=== PATIENT | male | born 1970 ===

== ENCOUNTER 2016-10-15 05:16 | Inpatient (IN) | payer OTHER ==
--- NOTE | 2016-10-15 06:31 | C.PDOC ---
History Of Present Illness 45 y/o male brought to ER by [facility] after being found in a building where he said he lived, however, patient is homeless. Patient presents to ER with medications from 2016. Patient's sister reports that he travels between [facility] [place] and [place] but does not have a place to stay. Denies suicidal ideation, homicidal ideation, or other medical complaints at this time. Time Seen by Provider: 10/15/16 06:28 Chief Complaint (Nursing): Psychiatric Evaluation History Per: Patient, Family, Other ([facility]) History/Exam Limitations: no limitations Current Symptoms Are (Timing): Still Present Suicide/Self Injury Attempted (Context): None Modifying Factor(s): None Pain Scale Rating Of: 0 Associated Symptoms: denies: Suicidal Thoughts, Suicidal Plan Recent travel outside of the [place]: No Past Medical History Reviewed: Historical Data, Nursing Documentation, Vital Signs Vital Signs: Last Vital Signs Temp 97.9 F 10/15/16 05:28 Pulse 103 H 10/15/16 05:28 Resp 20 10/15/16 05:28 BP 123/86 10/15/16 05:28 Pulse Ox 99 10/15/16 06:37 Family History: States: No Known Family Hx - Social History Hx Alcohol Use: No Hx Substance Use: No Review Of Systems Constitutional: Negative for: Fever, Chills Cardiovascular: Negative for: Chest Pain Respiratory: Negative for: Shortness of Breath Gastrointestinal: Negative for: Nausea, Vomiting Skin: Negative for: Rash Psych: Negative for: Suicidal ideation Physical Exam - Physical Exam Appears: Non-toxic, No Acute Distress, Other (flight of ideas, bizarre affect) Skin: Warm, Dry Chest: Symmetrical Cardiovascular: Rhythm Regular Respiratory: No Rales, No Rhonchi, No Wheezing Back: Normal Inspection Extremity: Normal ROM, Capillary Refill (< 2 sec. ) Neurological/Psych: Oriented x3 ED Course And Treatment O2 Sat by Pulse Oximetry: 99 (RA) Pulse Ox Interpretation: Normal Progress Note: Labs, crisis eval, observe in ER. ED OBSERVATION Date of observation admission: 10/15/16 Disposition Counseled Patient/Family Regarding: Studies Performed, Diagnosis - Disposition Disposition Time: 06:28 Condition: UNKNOWN - Clinical Impression Clinical Impression: Schizophrenia - Scribe Statement The provider has reviewed the documentation as recorded by the Shakira Garcia Provider Attestation: Provider Scribe Attestation: All medical record entries made by the Scribe were at my direction and personally dictated by me. I have reviewed the chart and agree that the record accurately reflects my personal performance of the history, physical exam, medical decision making, and the department course for this patient. I have also personally directed, reviewed, and agree with the discharge instructions and disposition. Physician Patient Turnover Patient Signed Over To: Yvonne Botello Handoff Comments: pending labs and crisis evaluation
[2016-10-15 06:40] LABS: BASO % 0.3 % (0.0-2.0); HEMATOCRIT 40.1 % (35.0-51.0); LYMPH # 1.9 K/uL (1.0-4.3); LYMPH % 17.3 % (20.0-40.0); MEAN CELL VOLUME 84.1 fL (80.0-94.0); MEAN CORPUSCULAR HEMOGLOBIN 27.6 pg (27.0-31.0); MEAN CORPUSCULAR HGB CONC 32.9 g/dL (33.0-37.0); MEAN PLATELET VOLUME 9.1 fL (7.2-11.7); MONO # 1.2 K/uL (0.0-0.8); MONO % 11.3 % (0.0-10.0); WHITE BLOOD COUNT 10.9 K/uL (4.8-10.8)
[2016-10-15 06:49] LABS: CHLORIDE 97 mmol/L (98-107); POTASSIUM 3.9 mmol/L (3.6-5.2); SODIUM 140 mmol/L (132-148)
[2016-10-15 06:51] LABS: ALB/GLOB RATIO 1.3 (1.0-2.1); AST/SGOT 30 U/L (17-59); BILIRUBIN,TOTAL 0.8 mg/dL (0.2-1.3); CARBON DIOXIDE 16 mmol/L (22-30); GFR AFRICAN-AMERICAN > 60
[2016-10-15 06:52] LABS: ALCOHOL SERUM < 10 mg/dl (0-10); ALKALINE PHOSPHATASE 59 U/L (38-126); ALT/SGPT 32 U/L (21-72); BLOOD UREA NITROGEN 19 mg/dL (9-20); CALCIUM 8.8 mg/dl (8.6-10.4); GLUCOSE,RANDOM 109 mg/dL (75-110)
[2016-10-15] MEDS ORDERED: DiphenhydrAMINE 50 mg/ml Inj IM STA (10:14)
[2016-10-15] MEDS ORDERED: DiphenhydrAMINE 50 mg/ml Inj ONE (10:26)
[2016-10-15 11:22] LABS: URINE BILIRUBIN NEGATIVE (NEGATIVE); URINE BLOOD 2+ (NEGATIVE); URINE COLOR Yellow (YELLOW); URINE GLUCOSE (UA) NORMAL (Normal); URINE KETONE 2+ mg/dL (NEGATIVE); URINE LEUKOCYTE ESTERASE NEG Leu/uL (Negative); URINE PROTEIN 2+ mg/dL (NEGATIVE); URINE UROBILINOGEN NORMAL mg/dL (0.2-1.0)
[2016-10-15 11:36] LABS: RBC URINE 8 /hpf (0-3); URINE BACTERIA OCC (<OCC); URINE HYALINE CAST 0 - 2 /lpf (0-2); WBC URINE 2 /hpf (0-5)
--- NOTE | 2016-10-15 13:31 | RAD ---
PROCEDURE: CHEST RADIOGRAPH, 1 VIEW HISTORY: possible screening COMPARISON: None available. FINDINGS: LUNGS: Poor inspiration with low lung volumes, crowded bronchovascular markings and mild bibasilar atelectasis PLEURA: No pneumothorax or pleural fluid seen. CARDIOVASCULAR: Heart appears borderline/mildly enlarged. OSSEOUS STRUCTURES: No significant abnormalities. VISUALIZED UPPER ABDOMEN: Normal. OTHER FINDINGS: None. IMPRESSION: Poor inspiration with low lung volumes, crowded bronchovascular markings and mild bibasilar atelectasis
--- NOTE | 2016-10-16 13:21 | PCM.PSYCH ---
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 Consultation was requested for patient's psychiatric condition which was previously evaluated by [facility] and he is committed for admission. The patient is a poor historian and is thought disordered, therefore the history is limited. He says he is 45-year-old, single with 2 adult children, unemployed and he claims he came from [place] but later on he stated that he came from [place]. He also claims he has an apartment here but then again he changed his story and he said he stays with a friend in [place]. He reports he was diagnosed with bipolar disorder and PTSD and was taking Seroquel and Xanax in the past. He is off medications now. According to medical records and by staff who spoke to his family, the patient had been hospitalized numerous times and involved in multiple behavioral problems. He was brought in by the police to our ER too. He denies having suicidal thoughts or homicidal thoughts but he appears grandiose, labile and psychotic. He has almost no insight into his condition. He also denied drug and alcohol use but his urine is positive for opiates and cocaine. Past psych history: Previous psych admissions Family psych history: Denied Medical history: Pain in leg and obese Current Medications: Active Medications Generic Name Dose Route Start Last Admin Trade Name Freq PRN Reason Stop Dose Admin Haloperidol 5 mg 10/16/16 13:19 Haldol PO Q1H PRN agitation, max 4x/24h Quetiapine Fumarate 100 mg 10/16/16 22:00 Seroquel PO HS [facility] Past Psychiatric History - Past Psychiatric History Previous Treatment History: Inpatient Pertinent Medical Hx (Current Medical&Sleep Prob, Allergies): Allergies Allergy/AdvReac Type Severity Reaction Status Date / Time No Known Allergies Allergy Verified 10/15/16 05:27 No Known Home Med 10/15/16 Review of Systems - Psychiatric Psychiatric: Abnormal Sleep Pattern, Anxiety, Difficulty Concentrating. absent : Hallucinations, Homicidal Ideation, Suicidal Ideation Mental Status Examination - Personal Presentation Personal Presentation: Looks older than stated age - Affect Affect: Other (labile) - Motor Activity Motor Activity: Calm - Reliability in Providing Information Reliability in Providing Information: Poor, due to alteration in thoughts, Poor , due to altered mood - Speech Speech: Disorganized - Mood Mood: Euphoric, Other (labile) - Formal Thought Process Formal Thought Process: Loosening of associations, Circumstantial - Cognitive Functions Orientation: Person, Place, Situation, Time Sensorium: Alert Estimate of Intelligence: Average Judgement: Intact, as evidence by: Insight regarding need for hospitalization Memory: Recent intact, as evidence by: Ability to recall events of the day, Remote intact, as evidenced by: Abilit to recall sig. life events - Risk Risk: Diminished functioning - Strength & Assets Inventory Strength & Assets Inventory: Cooperative - Limitations Limitations: Living alone DSM 5 DX - DSM 5 DSM 5 Diagnosis: Bipolar d/o - manic, severe r/o opioid and cocaine use d/o - Recommended/Plan of Treatment Treatment Recommendations and Plan of Treatment: Seroquel 100 mg tid prn haldol and ativan Transfer to [facility] 1:1
--- NOTE | 2016-10-16 21:31 | CARD ---
APPROVED REPORT EKG Measurement Heart [id number] <Conclusion> Sinus tachycardia Otherwise normal ECG
[2016-10-17 10:03] VITALS: O2SAT 98
--- NOTE | 2016-10-17 10:24 | PCM.PYCHPN ---
Psychiatric Progress Note - Psychiatric Progress Note Patient seen today, length of contact: 18 min Patient Chief Complaint: "I was a whole person when I came here, now I am not - they lost my drivers license in the ambulance" Problems Identified/Issues Discussed: The pt is seen, chart reviewed and case discussed. He is seen in ER, where he finally accepted to sign in voluntarily and agreed with the rules and understood his rights. And also on the floor. He is still manicky and has poor insight. [facility] but he doesn't have a good plan re follow up. He claims his family makes up stories about him being "very sick" (??) Yet, he does not shy away from talking about irrational and nonsensical things he had done when he was manic. Support and psychoed given Medication Change: Yes (increase doses) Medical Record Reviewed: Yes Mental Status Examination - Cognitive Function Orientation: Person, Place, Situation, Time Memory: Impaired Attention: Poor Concentration: Poor Association: Loose Fund of Knowledge: WNL - Mood Mood: Euphoric, Other (labile) - Affect Affect: Other (labile) - Speech Speech: Pressured - Formal Thought Process Formal Thought Process: Loosening of associations, Circumstantial - Suicidal Ideation Suicidal Ideation: No - Homicidal Ideation Homicidal Ideation: No Goal/Treatment Plan - Goal/Treatment Plan Need for Continued Stay: Discharge may exacerbated symptoms, Severe functional impairment Progress Toward Problem(s) and Goals/Treatment Plan: Seroquel is now 400 mg (100 bid and 200 hs) Continue other meds Support and psychoed CBT Close observation After care planning Estimated Date of D/C: 10/22/16
--- NOTE | 2016-10-18 15:49 | PCM.PYCHPN ---
Psychiatric Progress Note - Psychiatric Progress Note Patient seen today, length of contact: 15 minutes Patient Chief Complaint: I'm fine can I be discharged from the hospital Problems Identified/Issues Discussed: Patient seen. Chart reviewed. Case discussed with the staff. Issues related to illness and treatment were discussed with the patient. 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 Patient also believes that one of the nurse working on the unit is his second cousin. Patient still has no insight into his illness. Reported with medication he slept very well. Asking for discharge today so that he can attend the concert tomorrow. Reported compliant with treatment with no adverse affects. At the time of evaluation, patient was awake alert oriented 3 , no auditory or visual hallucinations, no suicidal ideations or homicidal ideations. Medical Problems: None reported Diagnostic Results: Reviewed Medication Change: No Medical Record Reviewed: Yes Mental Status Examination - Cognitive Function Orientation: Person, Place, Situation, Time Memory: Intact, Impaired Attention: WNL Concentration: WNL Association: WNL Fund of Knowledge: WNL Decription of patient's judgement and insights: Poor - Mood Mood: Euphoric - Affect Affect: Other (Appropriate) - Speech Speech: Soft, Pressured - Formal Thought Process Formal Thought Process: Loosening of associations - Suicidal Ideation Suicidal Ideation: No - Homicidal Ideation Homicidal Ideation: No Goal/Treatment Plan - Goal/Treatment Plan Need for Continued Stay: Remain at risks for inpatient hospitalization, Discharge may exacerbated symptoms, Severe functional impairment Progress Toward Problem(s) and Goals/Treatment Plan: Patient education Supportive therapy Continue treatment as before When necessary medications for opiate withdrawal Estimated Date of D/C: 10/27/16 - Smoking Cessation Smoking Cessation Initiated: No
--- NOTE | 2016-10-19 13:25 | PCM.PYCHPN ---
Psychiatric Progress Note - Psychiatric Progress Note Patient seen today, length of contact: 15 minutes Patient Chief Complaint: I'm feeling better. Problems Identified/Issues Discussed: Patient seen. Chart reviewed. Case discussed with the staff. Issues related to illness and treatment were discussed with the patient. Patient still appeared grandiose. Patient still has no insight into his illness. Reported with medication he slept very well. Reported compliant with treatment with no adverse affects. At the time of evaluation, patient was awake alert oriented 3 , no auditory or visual hallucinations, no suicidal ideations or homicidal ideations. Medical Problems: None reported Diagnostic Results: Reviewed Medication Change: No Medical Record Reviewed: Yes Mental Status Examination - Cognitive Function Orientation: Person, Place, Situation, Time Memory: Intact Attention: WNL Concentration: WNL Association: WNL Fund of Knowledge: WN Decription of patient's judgement and insights: Poor - Mood Mood: Euphoric - Affect Affect: Other (Appropriate) - Speech Speech: Pressured - Formal Thought Process Formal Thought Process: Delusions (Grandiosity) - Suicidal Ideation Suicidal Ideation: No - Homicidal Ideation Homicidal Ideation: No Goal/Treatment Plan - Goal/Treatment Plan Need for Continued Stay: Remain at risks for inpatient hospitalization, Discharge may exacerbated symptoms, Severe functional impairment Progress Toward Problem(s) and Goals/Treatment Plan: Patient education Supportive therapy Continue treatment as before When necessary medications for opiate withdrawal Estimated Date of D/C: 10/27/16 - Smoking Cessation Smoking Cessation Initiated: No
--- NOTE | 2016-10-20 12:35 | PCM.PYCHPN ---
Psychiatric Progress Note - Psychiatric Progress Note Patient seen today, length of contact: 17 min Patient Chief Complaint: "I am unhappy" Problems Identified/Issues Discussed: The pt is seen, chart reviewed, case discussed with staff. Seen as a team, too. The pt is compliant with medications and reports no side-effects. Symptoms are improving but needs more time to stabilize. He is still thought disordered, circumstantial, pressured and has low insight into his condition. He goes to [employer] and talks about irrelevant things a lot. He gave consent to us to talk to his friend, "Lupe" After care discussed, support and psychoeducation given. He will stay in for a while before he can go to [place]. Medication Change: Yes (add depakote, increase seroquel to 500 mg/d) Medical Record Reviewed: Yes Mental Status Examination - Cognitive Function Orientation: Person, Place, Situation, Time Memory: Intact Attention: Poor Concentration: Poor Association: Loose Fund of Knowledge: WNL - Mood Mood: Euphoric, Other (irate at times) - Affect Affect: Other (Appropriate) - Speech Speech: Pressured - Formal Thought Process Formal Thought Process: Delusions (Grandiosity), Loosening of associations - Suicidal Ideation Suicidal Ideation: No - Homicidal Ideation Homicidal Ideation: No Goal/Treatment Plan - Goal/Treatment Plan Need for Continued Stay: Remain at risks for inpatient hospitalization, Discharge may exacerbated symptoms, Severe functional impairment Progress Toward Problem(s) and Goals/Treatment Plan: Seroquel is now 500 mg (100 bid and 300 hs) add depakote 500 mg bid Continue other meds Support and psychoed CBT Close observation After care planning: CRC Estimated Date of D/C: 10/24/16 If changed, why: slowly improving
[2016-10-20] MEDS: Divalproex 500 mg DR Tab PO SCH (17:47)
[2016-10-21] MEDS: Divalproex 500 mg DR Tab PO SCH ×2 (09:37→17:15)
--- NOTE | 2016-10-21 13:37 | PCM.PYCHPN ---
Psychiatric Progress Note - Psychiatric Progress Note Patient seen today, length of contact: 18 min Patient Chief Complaint: "My daughter wants to pick me up" Problems Identified/Issues Discussed: The pt is seen, chart reviewed, case discussed with staff. The pt is compliant with medications and reports no side-effects. Symptoms are improving but needs more time to stabilize. He is still thought disordered, circumstantial and delusional. 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 Coin Wrapping Machine Operator spoke to his 21 year old daughter over the phone with his permission. She reported that pt was just released from a"mental institution in [place]" and that he stops meds when he feels he is OK. She even asked if we could send him to [place] for detention admission. After care discussed, support and psychoeducation given. IN and CBT used briefly.He was using drugs, too. Medication Change: Yes (depakote added) Medical Record Reviewed: Yes Mental Status Examination - Cognitive Function Orientation: Person, Place, Situation, Time Memory: Intact Attention: Poor Concentration: Poor Association: Loose Fund of Knowledge: WNL - Mood Mood: Euphoric, Other (irate at times) - Affect Affect: Other (Appropriate) - Speech Speech: Pressured - Formal Thought Process Formal Thought Process: Delusions (Grandiosity), Loosening of associations - Suicidal Ideation Suicidal Ideation: No - Homicidal Ideation Homicidal Ideation: No Goal/Treatment Plan - Goal/Treatment Plan Need for Continued Stay: Remain at risks for inpatient hospitalization, Discharge may exacerbated symptoms, Severe functional impairment Progress Toward Problem(s) and Goals/Treatment Plan: Seroquel is now 500 mg (100 bid and 300 hs) added depakote 500 mg bid Consider depot meds Continue other meds Support and psychoed CBT Close observation After care planning: CRC or [facility] Get insurance as he will need it a lot for after care Estimated Date of D/C: 10/24/16
[2016-10-22] MEDS: Divalproex 500 mg DR Tab PO SCH ×2 (10:50→17:08)
--- NOTE | 2016-10-22 16:38 | PCM.PYCHPN ---
Psychiatric Progress Note - Psychiatric Progress Note Patient seen today, length of contact: 16 min Patient Chief Complaint: Pt seen for follow up Problems Identified/Issues Discussed: Pt was seen, chart reviewed, and case discussed with staff. Reported compliant with the treatment, no adverse effects. There is slight improvement of symptoms, however continued disordered,circumstantial and delusional thought process. Pt still without insight. Needs more time to stabilize. 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 Medication Change: No Medical Record Reviewed: Yes Mental Status Examination - Cognitive Function Orientation: Person, Place, Situation, Time Memory: Intact Attention: Poor Concentration: Poor Association: Loose Fund of Knowledge: WNL - Mood Mood: Euphoric, Other (irate at times) - Affect Affect: Other (Appropriate) - Speech Speech: Pressured - Formal Thought Process Formal Thought Process: Delusions (Grandiosity), Loosening of associations - Suicidal Ideation Suicidal Ideation: No - Homicidal Ideation Homicidal Ideation: No Goal/Treatment Plan - Goal/Treatment Plan Need for Continued Stay: Remain at risks for inpatient hospitalization, Discharge may exacerbated symptoms, Severe functional impairment Progress Toward Problem(s) and Goals/Treatment Plan: Seroquel is now 500 mg (100 bid and 300 hs) depakote 500 mg bid Consider depot meds Continue other meds Support and psychoed CBT Close observation After care planning: CRC or [facility] Get insurance as he will need it a lot for after care Estimated Date of D/C: 10/27/16 If changed, why: Still manic and psychotic
[2016-10-23] MEDS: Aluminum Hydroxide/Magnesium Hydroxide Susp (30 mL) PO PRN (00:15)
[2016-10-23] MEDS: Divalproex 500 mg DR Tab PO SCH ×2 (10:05→17:15)
--- NOTE | 2016-10-23 14:19 | PCM.PYCHPN ---
Psychiatric Progress Note - Psychiatric Progress Note Patient seen today, length of contact: 16 min Patient Chief Complaint: "I haven't slept, can I have Ambien?" Problems Identified/Issues Discussed: Pt seen, chart reviewed, and case discussed with staff. Pt compliant with treatment. Complains of poor sleep and requesting medication. Today, pt's symptoms are improved from yesterday, thought process improved however still tangential and delusional. Pt still without insight. Today, pt adamant about being discharged in time to attend [facility] [place] Thursday. Denies suicidal ideation, homicidal ideation. Still manic and psychotic but slowly improving. Aftercare discussed, psychoeducation and support given. Medication Change: Yes (Depakote, haldol) Medical Record Reviewed: Yes Mental Status Examination - Cognitive Function Orientation: Person, Place, Situation, Time Memory: Intact Attention: Poor Concentration: Poor Association: Loose Fund of Knowledge: WNL - Mood Mood: Anxious - Affect Affect: Other (Appropriate) - Speech Speech: Pressured - Formal Thought Process Formal Thought Process: Delusions (Grandiosity), Loosening of associations - Suicidal Ideation Suicidal Ideation: No - Homicidal Ideation Homicidal Ideation: No Goal/Treatment Plan - Goal/Treatment Plan Need for Continued Stay: Remain at risks for inpatient hospitalization, Discharge may exacerbated symptoms, Severe functional impairment Progress Toward Problem(s) and Goals/Treatment Plan: Seroquel 500 mg (100 bid and 300 hs) depakote 1000 mg bid Consider depot meds; ordered for the weekend Continue other meds Support and psychoed CBT Close observation After care planning: CRC or [facility] Get insurance as he will need it a lot for after care Estimated Date of D/C: 10/29/16
[2016-10-24] MEDS: Divalproex 500 mg DR Tab PO SCH ×2 (09:27→18:39)
--- NOTE | 2016-10-24 16:38 | PCM.PYCHPN ---
Psychiatric Progress Note - Psychiatric Progress Note Patient seen today, length of contact: 16 min Patient Chief Complaint: "I only slept 3 hours" Problems Identified/Issues Discussed: Pt was seen, chart reviewed, and case discussed with staff Pt is compliant with medication. Complains of persistent poor sleep. Denies suicidal ideation, homicidal ideation, and hallucinations. Today, pt's symptoms are much improved. Pt is less psychotic, less manic, and more cooperative. Aftercare discussed, psychoeducation and support given. Medication Change: No Medical Record Reviewed: Yes Mental Status Examination - Cognitive Function Orientation: Person, Place, Situation, Time Memory: Intact Attention: Poor Concentration: Poor Association: Loose Fund of Knowledge: WNL - Mood Mood: Anxious - Affect Affect: Other (Appropriate) - Speech Speech: Appropriate - Formal Thought Process Formal Thought Process: Delusions (Grandiosity), Loosening of associations - Suicidal Ideation Suicidal Ideation: No - Homicidal Ideation Homicidal Ideation: No Goal/Treatment Plan - Goal/Treatment Plan Need for Continued Stay: Remain at risks for inpatient hospitalization, Discharge may exacerbated symptoms, Severe functional impairment Progress Toward Problem(s) and Goals/Treatment Plan: Seroquel 500 mg (100 bid and 300 hs) depakote 1000 mg bid Consider depot meds; ordered for the weekend Continue other meds Support and psychoed CBT Close observation After care planning: CRC or [facility] Get insurance as he will need it a lot for after care Estimated Date of D/C: 10/29/16
[2016-10-25] MEDS: Divalproex 500 mg DR Tab PO SCH ×2 (09:46→17:33)
--- NOTE | 2016-10-25 11:28 | PCM.PYCHPN ---
Psychiatric Progress Note - Psychiatric Progress Note Patient seen today, length of contact: 16 min Patient Chief Complaint: I'm doing fine Problems Identified/Issues Discussed: Patient seen and evaluated, chart reviewed and discussed with the nurse. Patient appeared more disorganized and less internally preoccupied than before. however he still unkempt, malodorous and not taking care of his hygiene. he appears less irritable and less agitation. he states that he is doing much better than before. he is taking his medication and denied any side effects. Supportive therapy and psychoeducation were given. Medication Change: No Medical Record Reviewed: Yes Mental Status Examination - Cognitive Function Orientation: Person, Place, Situation, Time Memory: Intact Attention: Poor Concentration: Poor Association: Loose Fund of Knowledge: WNL - Mood Mood: Anxious - Affect Affect: Other (Appropriate) - Speech Speech: Appropriate - Formal Thought Process Formal Thought Process: Delusions (Grandiosity), Paranoia, Loosening of associations - Suicidal Ideation Suicidal Ideation: No - Homicidal Ideation Homicidal Ideation: No Goal/Treatment Plan - Goal/Treatment Plan Need for Continued Stay: Remain at risks for inpatient hospitalization, Discharge may exacerbated symptoms, Severe functional impairment Progress Toward Problem(s) and Goals/Treatment Plan: Bipolar d/o - manic, severe r/o opioid and cocaine use d/o Seroquel 500 mg (100 bid and 300 hs) depakote 1000 mg bid Consider depot meds; ordered for the weekend Continue other meds Support and psychoed CBT Close observation After care planning: CRC or [facility] Get insurance as he will need it a lot for after care Estimated Date of D/C: 10/29/16 - Smoking Cessation Smoking Cessation Initiated: No
[2016-10-25] MEDS: Benzocaine/Menthol (Cepacol) Lozenge MT PRN (17:37)
[2016-10-26] MEDS: Benzocaine/Menthol (Cepacol) Lozenge MT PRN ×3 (03:30→13:56)
[2016-10-26] MEDS: Divalproex 500 mg DR Tab PO SCH ×2 (09:56→17:12)
--- NOTE | 2016-10-26 16:14 | PCM.PYCHPN ---
Psychiatric Progress Note - Psychiatric Progress Note Patient seen today, length of contact: 16 min Patient Chief Complaint: I'm feeling better. Problems Identified/Issues Discussed: Patient seen and evaluated, chart reviewed and discussed with the nurse. As per the nurse, patient remained calm and cooperative and as less anxious and less irritable. Patient is still unkempt and he is not taking care of his hygiene. However he appears more organized and less internally preoccupied than before. He denies any suicidal ideation or homicidal ideation. He is taking his medication and denied any side effects. Supportive therapy and psychoeducation were given. Medication Change: No Medical Record Reviewed: Yes Mental Status Examination - Cognitive Function Orientation: Person, Place, Situation, Time Memory: Intact Attention: Poor Concentration: Poor Association: Loose Fund of Knowledge: WNL - Mood Mood: Anxious - Affect Affect: Other (Appropriate) - Speech Speech: Appropriate - Formal Thought Process Formal Thought Process: Delusions (Grandiosity), Paranoia, Loosening of associations - Suicidal Ideation Suicidal Ideation: No - Homicidal Ideation Homicidal Ideation: No Goal/Treatment Plan - Goal/Treatment Plan Need for Continued Stay: Remain at risks for inpatient hospitalization, Discharge may exacerbated symptoms, Severe functional impairment Progress Toward Problem(s) and Goals/Treatment Plan: Bipolar d/o - manic, severe r/o opioid and cocaine use d/o Seroquel 500 mg (100 bid and 300 hs) Depakote 1000 mg bid Haldol 50 mg IM shot Klonopin 1 mg by mouth twice a day trazodone 50 mg by mouth daily at bedtime Gabapentin 300 mg by mouth daily Consider depot meds; ordered for the weekend Continue other meds Support and psychoed CBT Close observation After care planning: [facility] or [facility] [place] Get insurance as he will need it a lot for after care Estimated Date of D/C: 10/29/16 - Smoking Cessation Smoking Cessation Initiated: No
[2016-10-27] MEDS: Benzocaine/Menthol (Cepacol) Lozenge MT PRN ×2 (09:53→22:14)
[2016-10-27] MEDS: Divalproex 500 mg DR Tab PO SCH ×2 (09:53→18:22)
[2016-10-27 15:52] VITALS: PULSE 96
--- NOTE | 2016-10-28 00:53 | PCM.PYCHPN ---
Psychiatric Progress Note - Psychiatric Progress Note Patient seen today, length of contact: 17 min Patient Chief Complaint: "I am too tired with meds" Problems Identified/Issues Discussed: Pt was seen, chart reviewed, and case discussed with staff Pt is compliant with medications. c/o oversedation - doses adjusted Denies suicidal ideation, homicidal ideation, and hallucinations. CBt used Aftercare discussed, psychoeducation and support given. Medication Change: No Medical Record Reviewed: Yes Mental Status Examination - Cognitive Function Orientation: Person, Place, Situation, Time Memory: Intact Attention: Poor Concentration: Poor Association: Loose Fund of Knowledge: WNL - Mood Mood: Anxious - Affect Affect: Other (Appropriate) - Speech Speech: Appropriate - Formal Thought Process Formal Thought Process: Delusions (Grandiosity), Paranoia, Loosening of associations - Suicidal Ideation Suicidal Ideation: No - Homicidal Ideation Homicidal Ideation: No Goal/Treatment Plan - Goal/Treatment Plan Need for Continued Stay: Remain at risks for inpatient hospitalization, Discharge may exacerbated symptoms, Severe functional impairment Progress Toward Problem(s) and Goals/Treatment Plan: Seroquel 500 mg (100 bid and 300 hs) depakote 1000 mg bid Consider depot meds; ordered for the weekend Continue other meds Support and psychoed CBT Close observation After care planning: [facility] or [facility] Get insurance as he will need it a lot for after care Estimated Date of D/C: 10/29/16
[2016-10-28] MEDS: Benzocaine/Menthol (Cepacol) Lozenge MT PRN ×2 (05:59→11:07)
--- NOTE | 2016-10-28 09:52 | PCM.PYCHDC ---
Mental Status Examination - Mental Status Examination Orientation: Person, Place, Situation, Time Memory: Intact Mood: Anxious Affect: Constricted Speech: Appropriate Attention: WNL Concentration: WNL Association: WNL Fund of Knowledge: WNL Formal Thought Process: No Impairment Suicidal Ideation: No Current Homicidal Ideation?: No Discharge Summary - Discharge Note Reason for Hospitalization: Agitation, tommy Psychiatric History (includes Medical, Family, Personal Hx): Numerous admissions in [place] and [place], bipolar d/o Laboratory Data: Abnormal Lab Results 10/27/16 10:15 Valproic Acid 58.9 Consultations:: List each consultation separately and include: 1. Reason for request. 2. Findings. 3. Follow-up Summary of Hospital Course include:: 1. Description of specific treatment plan utilized for patients during their course of treatmen. 2. Summarize the time- course for resolution of acute symptoms and/or regressed behaviors. 3. Describe issues identified and worked on during hospitalization. 4. Describe medication utilized. 5. Describe medical problems identified and treated. 6. Reassessment of suicide risk Summary of Hospital Course: The patient is seen, chart reviewed and case discussed. On admission: The patient is a poor historian and is thought disordered, therefore the history is limited. He says he is 45-year-old, single with 2 adult children, unemployed and he claims he came from [place] but later on he stated that he came from [place]. He also claims he has an apartment here but then again he changed his story and he said he stays with a friend in [place]. He reports he was diagnosed with bipolar disorder and PTSD and was taking Seroquel and Xanax in the past. He is off medications now. According to medical records and by staff who spoke to his family, the patient had been hospitalized numerous times and involved in multiple behavioral problems. He was brought in by the police to our ER too. He denies having suicidal thoughts or homicidal thoughts but he appears grandiose, labile and psychotic. He has almost no insight into his condition. He also denied drug and alcohol use but his urine is positive for opiates and cocaine. Past psych history: Previous psych admissions Family psych history: Denied Medical history: Pain in leg and obese Hospital course: The pt was admitted and started on treatment with psychotherapy, support, psychoeducation and medications, incl. depakote and haldol decanoate. [place] and CBT used for substance use (which he minimizes) and bipolar d/o, respectively. The pt attended groups and activities, as well as milieu therapy. [employer] Compliance Officer got collateral from his daughter who confirmed his chronic mental illness and need for long stay and tx. However, the pt was not interested in longer care and his insight improved slowly He was grandiose and delusional, but not as agitated as his first day in ED All the risks and benefits of medications are discussed and the patient understood and agreed. After care discussed with the patient. He wanted to stay in [place] until he is feeling better and then move to [place] again He will go to [facility] - Final Diagnosis (DSM 5) Condition upon Discharge: STABLE DSM 5: Bipolar 1 d/o - manic Cocaine use d/o - severe Disposition: HOME/ ROUTINE Follow-up Treatment Plan: Continue below medications after discharge. Depakote is also rx'ed but [facility] did not show Follow after care plan as discussed. [facility] Use relapse prevention skills Return to ER or call 911 if suicidal, homicidal or symptoms relapse. Stay away from stress, alcohol and drugs. Prescriptions/Medication Reconciliation: hydrOXYzine HCl [Atarax] 50 mg PO BID #60 tab Gabapentin [Neurontin] 300 mg PO TID #90 cap QUEtiapine [Seroquel] 300 mg PO HS #30 tab - Smoking Cessation Smoking Cessation Medication prescribed: No - Antipsychotic Medications Pt discharged on 2 or more routine antipsychotic medications: No
[2016-10-28 10:28] VITALS: BP 117/77; RESP 20; TEMP 97.5
[2016-10-28] MEDS: Aluminum Hydroxide/Magnesium Hydroxide Susp (30 mL) PO PRN (11:02)
[2016-10-28] MEDS: Divalproex 500 mg DR Tab PO SCH (11:06)
== END 2016-10-28 11:43 | disposition home or self-care (01) | DRG 430 ==
LOC: C.ER 05:16 → C.9OBSV 06:29 → OBSVTOIN 10-17 10:24 → C.9E 10-17 10:24 → C.5E 10-17 10:45
PROVIDERS: ADMIT Psychiatry & Neurology Psychiatry; ATTEND Psychiatry & Neurology Psychiatry
PROC: GZ3ZZZZ Medication Management (ICD-10-PCS; principal; 2016-10-17)
PROC: GZHZZZZ Group Psychotherapy (ICD-10-PCS; 2016-10-17)
PROC: GZ56ZZZ Individual Psychotherapy, Supportive (ICD-10-PCS; 2016-10-17)
DX: F31.13 Bipolar disorder, current episode manic without psychotic features, severe (principal); F11.10 Opioid abuse, uncomplicated; F14.10 Cocaine abuse, uncomplicated; F43.10 Post-traumatic stress disorder, unspecified; Z59.0 Homelessness

== ENCOUNTER 2016-11-04 08:29 | Inpatient (IN) | payer MEDICAID, OTHER ==
[2016-11-04 08:40] VITALS: BMI 38.7
--- NOTE | 2016-11-04 09:50 | C.PDOC ---
History Of Present Illness 45 y/o male hx of anxiety, bipolar disorder, presents to the ED with complains of anxiety x1 week and inability to sleep. Pt was recently discharged from hospital and states he did not get prescription for sleeping medications; he used to take trazadone. Pt denies SI, HI, or any other complaints. Time Seen by Provider: 11/04/16 08:48 Chief Complaint (Nursing): Anxiety History Per: Patient History/Exam Limitations: no limitations Onset/Duration Of Symptoms: Days Current Symptoms Are (Timing): Still Present Suicide/Self Injury Attempted (Context): None Modifying Factor(s): None Severity: Mild Associated Symptoms: Anxiety. denies: Suicidal Thoughts Involuntary Hold By: None Recent travel outside of the [place]: No Past Medical History Reviewed: Historical Data, Nursing Documentation, Vital Signs Vital Signs: Last Vital Signs Temp 98.4 F 11/04/16 12:23 Pulse 74 11/04/16 12:23 Resp 18 11/04/16 12:23 BP 109/71 11/04/16 12:23 Pulse Ox 98 11/04/16 12:23 - Medical History PMH: Bipolar Disorder, Post Traumatic Stress Disorder Denies: HIV (Unknown) Comment Only: Diabetes (Unknown), Hepatitis (Unknown), HTN (Unknown), Seizures (Unknown), Sexually Transmitted Disease (Unknown) Surgical History: Appendectomy - [facility] Procedures GROUP PSYCHOTHERAPY (10/17/16) INDIVIDUAL PSYCHOTHERAPY, SUPPORTIVE (10/17/16) MEDICATION MANAGEMENT (10/17/16) Family History: States: Unknown Family Hx - Social History Hx Alcohol Use: No Hx Substance Use: No (pt denies) - Immunization History Hx Tetanus Toxoid Vaccination: Yes Hx Influenza Vaccination: No Hx Pneumococcal Vaccination: Yes Review Of Systems Except As Marked, All Systems Reviewed And Found Negative. Constitutional: Negative for: Fever Psych: Positive for: Anxiety. Negative for: Suicidal ideation Physical Exam - Physical Exam Appears: Non-toxic, No Acute Distress Skin: Warm, Dry, No Rash Head: Atraumatic, Normacephalic Eye(s): bilateral: Normal Inspection, EOMI Neck: Normal ROM Cardiovascular: Rhythm Regular Respiratory: Normal Breath Sounds, No Rales, No Rhonchi, No Wheezing Extremity: Bilateral: Atraumatic Neurological/Psych: Oriented x3, Normal Speech, Other (anxious, bizarre affect) ED Course And Treatment - Laboratory Results Result Diagrams: 11/04/16 10:38 11/04/16 10:38 Lab Interpretation: No Acute Changes O2 Sat by Pulse Oximetry: 97 (on room air) Pulse Ox Interpretation: Normal Medical Decision Making Medical Decision Making: Pt was admitted on 10/15 for bipolar disorder, discharged 10/28. Plan: * CRISIS evaluation Reevaluation: electrical line worker evaluates patient at bedside and recommends labs for clearance. Labs ordered and reviewed. In my clinical judgment patient is medically cleared and stable for psychiatric admission. Patient to be admitted under DR Flores service for bipolar disorder Disposition Counseled Patient/Family Regarding: Need For Followup, Rx Given - Disposition Disposition: HOSPITALIZED Disposition Time: 12:03 Condition: FAIR - POA Present On Arrival: None - Clinical Impression Clinical Impression: Bipolar disorder - PA / SPOOL WINDER / Resident Statement MD/DO has reviewed & agrees with the documentation as recorded. - Scribe Statement The provider has reviewed the documentation as recorded by the Nathanaelibannie Bales All medical record entries made by the Scribe were at my direction and personally dictated by me. I have reviewed the chart and agree that the record accurately reflects my personal performance of the history, physical exam, medical decision making, and the department course for this patient. I have also personally directed, reviewed, and agree with the discharge instructions and disposition. Decision To Admit - Pt Status Changed To: Hospital Disposition Of: Inpatient - Admit Certification Admit to Inpatient:: After my assessment, the patient will require hospitalization for at least two midnights. This is because of the severity of symptoms shown, intensity of services needed, and/or the medical risk in this patient being treated as an outpatient. - InPatient: Physician Admission Certification: I certify that this patient requires 2 or more midnights of care for the following reason:: Patient for [facility] admission for bipolar disorder, see chart - . Bed Request Type: Psychiatry Admitting Physician: Kecia Flores Patient Diagnosis: Bipolar disorder
[2016-11-04 10:43] LABS: BASO % 0.5 % (0.0-2.0); EOS # 0.1 K/uL (0.0-0.7); EOS % 1.1 % (0.0-4.0); HEMATOCRIT 34.3 % (35.0-51.0); LYMPH # 1.9 K/uL (1.0-4.3); LYMPH % 26.4 % (20.0-40.0); MEAN CELL VOLUME 84.1 fL (80.0-94.0); MEAN CORPUSCULAR HEMOGLOBIN 27.6 pg (27.0-31.0); MEAN CORPUSCULAR HGB CONC 32.8 g/dL (33.0-37.0); MEAN PLATELET VOLUME 7.6 fL (7.2-11.7); MONO # 0.6 K/uL (0.0-0.8); MONO % 8.7 % (0.0-10.0); NRBC % 0.1 % (0.0-2.0); RED CELL DISTRIBUTION WIDTH 15.1 % (11.5-14.5); WHITE BLOOD COUNT 7.3 K/uL (4.8-10.8)
[2016-11-04 10:55] LABS: CHLORIDE 103 mmol/L (98-107)
[2016-11-04 10:56] LABS: POTASSIUM 3.8 mmol/L (3.6-5.2); SODIUM 137 mmol/L (132-148)
[2016-11-04 10:58] LABS: BILIRUBIN,TOTAL 0.2 mg/dL (0.2-1.3); CARBON DIOXIDE 25 mmol/L (22-30); GFR AFRICAN-AMERICAN > 60
[2016-11-04 10:59] LABS: ALB/GLOB RATIO 1.2 (1.0-2.1); ALCOHOL SERUM < 10 mg/dl (0-10); ALKALINE PHOSPHATASE 59 U/L (38-126); ALT/SGPT 43 U/L (21-72); AST/SGOT 29 U/L (17-59); BLOOD UREA NITROGEN 8 mg/dL (9-20); CALCIUM 8.2 mg/dl (8.6-10.4); GLUCOSE,RANDOM 132 mg/dL (75-110); TOTAL PROTEIN 6.5 g/dL (6.3-8.3)
[2016-11-04 11:01] LABS: RBC URINE 11 /hpf (0-3); URINE BACTERIA RARE (<OCC); URINE BILIRUBIN NEGATIVE (NEGATIVE); URINE BLOOD 1+ (NEGATIVE); URINE COLOR Yellow (YELLOW); URINE GLUCOSE (UA) NORMAL (Normal); URINE KETONE NEGATIVE (NEGATIVE); URINE LEUKOCYTE ESTERASE NEG Leu/uL (Negative); URINE PROTEIN NEGATIVE (NEGATIVE); URINE UROBILINOGEN NORMAL mg/dL (0.2-1.0); WBC URINE 2 /hpf (0-5)
--- NOTE | 2016-11-04 13:15 | PCM.PSYCH ---
Initial Psychiatric Evaluation - Initial Psychiatric Evaluation Type of Admission: Voluntary Legal Status: Capacity Past Psychiatric History - Past Psychiatric History Pertinent Medical Hx (Current Medical&Sleep Prob, Allergies): Allergies Allergy/AdvReac Type Severity Reaction Status Date / Time No Known Allergies Allergy Verified 11/04/16 08:38 Gabapentin [Neurontin] 300 mg PO TID #90 cap 10/28/16 QUEtiapine [Seroquel] 100 mg PO DAILY #30 tab 10/28/16 QUEtiapine [Seroquel] 300 mg PO HS #30 tab 10/28/16 hydrOXYzine HCl [Atarax] 50 mg PO BID #60 tab 10/28/16
[2016-11-04 13:22] VITALS: O2SAT 97
--- NOTE | 2016-11-04 14:17 | PCM.PSYCH ---
Initial Psychiatric Evaluation - Initial Psychiatric Evaluation Type of Admission: Voluntary Legal Status: Capacity Chief Complaint (in patient's own words): Feeling very anxious History of Present Illness and Precipitating Events: Pt is a 46 year old, male, presenting to the ED for a crisis evaluation due to anxiety and loss of sleep. Pt states that he has been unable to sleep since his discharge from last week. Patient was just discharged from [facility] almost 10 days ago. He was admitted because of disorganized and internally preoccupied behavior. As per the patient, soon after discharge he stopped taking medications as he thought that he has already received the injection. As per the patient, he started having racing of thoughts and flight of ideas. Yesterday he started having hallucinations so came to the hospital to get help. Patient remained disorganized and internally preoccupied throughout the interview. He appeared delusional and paranoid. Patient reports of hearing voices auditory hallucinations and reports persecutory delusions that someone is following him. His urinary toxicology is positive for heroin, cocaine and marijuana and patient reports that he abused something in a alliance party but he doesnt remember. Past medical history Hypercholesterolemia Current Medications: Active Medications Generic Name Dose Route Start Last Admin Trade Name Freq PRN Reason Stop Dose Admin Diphenhydramine HCl 50 mg 11/04/16 13:19 Benadryl PO Q6 PRN Extra Pyramidal Symptoms Haloperidol 5 mg 11/04/16 13:19 Haldol PO Q8 PRN Moderate Agitation Haloperidol Lactate 5 mg 11/04/16 13:19 Haldol IM Q8 PRN Moderate Agitation Lorazepam 1 mg 11/04/16 13:19 Ativan PO Q6 PRN Anxiety Trazodone HCl 50 mg 11/04/16 22:00 Desyrel PO HS [facility] Past Psychiatric History - Past Psychiatric History Previous Treatment History: Inpatient Pertinent Medical Hx (Current Medical&Sleep Prob, Allergies): Allergies Allergy/AdvReac Type Severity Reaction Status Date / Time No Known Allergies Allergy Verified 11/04/16 08:38 Gabapentin [Neurontin] 300 mg PO TID #90 cap 10/28/16 QUEtiapine [Seroquel] 100 mg PO DAILY #30 tab 10/28/16 QUEtiapine [Seroquel] 300 mg PO HS #30 tab 10/28/16 hydrOXYzine HCl [Atarax] 50 mg PO BID #60 tab 10/28/16 Review of Systems - Review of Systems All systems: reviewed and no additional remarkable complaints except - Psychiatric Psychiatric: Anxiety, Auditory Hallucinations, Irritability, Mood Swings, Visual Hallucinations Mental Status Examination - Personal Presentation Personal Presentation: Looks older than stated age - Affect Affect: Broad - Motor Activity Motor Activity: Psychomotor Agitation - Reliability in Providing Information Reliability in Providing Information: Poor, due to alteration in thoughts, Poor , due to altered mood - Speech Speech: Disorganized - Mood Mood: Anxious - Formal Thought Process Formal Thought Process: Hallucinations, Delusions, Paranoia, Loosening of associations, Flight of ideas - Hallucinations/Delusions Hallucinations: Visual, Auditory Delusions: Persecution - Obsessions/Compulsions Obsessions: No Compulsions: No - Cognitive Functions Orientation: Person, Place, Situation, Time Sensorium: Alert Attention/Concentration: Attentive Abstract Thinking: Harper Estimate of Intelligence: Below average Judgement: Imparied, as evidence by: Poor judgement, Imparied, as evidence by: Lack of insight into illness - Risk Risk: Diminished functioning - Strength & Assets Inventory Strength & Assets Inventory: Cooperative - Limitations Limitations: Living alone DSM 5 DX - DSM 5 DSM 5 Diagnosis: Schizoaffective disorder bipolar type Opiate use disorder moderate Cocaine use disorder moderate Cannabis use disorder mild - Recommended/Plan of Treatment Treatment Recommendations and Plan of Treatment: Schizoaffective disorder bipolar type CBT Psychoeducation Supportive therapy, group therapy, individual therapy Depakote 500 mg by mouth twice a day Neurontin 300 mg by mouth 3 times a day Trazodone 50 mg by mouth daily at bedtime Seroquel 100 milligrams by mouth daily at bedtime Opiate use disorder moderate CBT Psychoeducation Supportive therapy, individual therapy Use [place] for abstinence Cocaine use disorder moderate CBT Psychoeducation Supportive therapy, individual therapy Use [place] for abstinence Cannabis use disorder mild CBT Psychoeducation Supportive therapy, individual therapy Use [place] for abstinence - Smoking Cessation Smoking Cessation Initiated: No
[2016-11-04] MEDS: Divalproex 500 mg DR Tab PO SCH (19:03)
--- NOTE | 2016-11-05 09:55 | PCM.PYCHPN ---
Mental Status Examination - Cognitive Function Orientation: Person, Place, Situation, Time - Mood Mood: Anxious - Affect Affect: Broad - Formal Thought Process Formal Thought Process: Hallucinations, Delusions, Paranoia, Loosening of associations, Flight of ideas
[2016-11-05] MEDS: Divalproex 500 mg DR Tab PO SCH ×2 (10:13→17:50)
--- NOTE | 2016-11-05 14:15 | PCM.PYCHPN ---
Psychiatric Progress Note - Psychiatric Progress Note Patient seen today, length of contact: 17 min Patient Chief Complaint: I'm still feeling very anxious Problems Identified/Issues Discussed: Patient seen and evaluated, chart reviewed and discussed with the nurse. Patient reports irritability and agitation. He reports racing of thoughts and flight of ideas and anxiety. He remained isolated and withdrawn. He still reports auditory hallucinations and persecutory delusions. Patient still appears disorganized and internally preoccupied. However he remained calm and cooperative. He is taking medication and denies any side effects. Supportive therapy and psychoeducation were given Medication Change: Yes (Increase Seroquel) Medical Record Reviewed: Yes Mental Status Examination - Cognitive Function Orientation: Person, Place, Situation, Time Memory: Intact Attention: WNL Concentration: Poor Association: Loose Fund of Knowledge: Poor - Mood Mood: Anxious - Affect Affect: Broad - Speech Speech: Pressured - Formal Thought Process Formal Thought Process: Hallucinations, Delusions, Paranoia, Loosening of associations, Flight of ideas - Suicidal Ideation Suicidal Ideation: No - Homicidal Ideation Homicidal Ideation: No Goal/Treatment Plan - Goal/Treatment Plan Need for Continued Stay: Discharge may exacerbated symptoms, Severe functional impairment Progress Toward Problem(s) and Goals/Treatment Plan: Schizoaffective disorder bipolar type CBT Psychoeducation Supportive therapy, group therapy, individual therapy Depakote 500 mg by mouth twice a day Neurontin 300 mg by mouth 3 times a day Trazodone 50 mg by mouth daily at bedtime Seroquel 300 milligrams by mouth daily at bedtime Opiate use disorder moderate CBT Psychoeducation Supportive therapy, individual therapy Use [place] for abstinence Cocaine use disorder moderate CBT Psychoeducation Supportive therapy, individual therapy Use [place] for abstinence Cannabis use disorder mild CBT Psychoeducation Supportive therapy, individual therapy Use [place] for abstinence - Smoking Cessation Smoking Cessation Initiated: No
[2016-11-06] MEDS: Divalproex 500 mg DR Tab PO SCH ×2 (11:00→17:01)
--- NOTE | 2016-11-06 17:37 | PCM.PYCHPN ---
Psychiatric Progress Note - Psychiatric Progress Note Patient seen today, length of contact: 17 min Patient Chief Complaint: "I'm alright, not bad" Medical Problems: Pt was seen, chart reviewed and case discussed with staff. Pt states he feels better, but continued slight anxiety. Pt fixating on "the urine falling from the ceiling, I can smell the urine... I don't know what kind of place this is" ( referring to water leaking from hallway ceiling). States auditory hallucination have resolved. Denies suicidal ideation, homicidal ideation and visual hallucinations. Pt is compliant with medication without adverse effects. Noted to be isolated, minimally socializing. Today, pt continues to be disorganized and delusional, but calm and cooperative. Psychoeducation and support given. Medication Change: No Medical Record Reviewed: Yes Mental Status Examination - Cognitive Function Orientation: Person, Place, Situation, Time Memory: Intact Attention: WNL Concentration: Poor Association: Loose Fund of Knowledge: Poor - Mood Mood: Anxious - Affect Affect: Broad - Speech Speech: Pressured - Formal Thought Process Formal Thought Process: Hallucinations, Delusions, Paranoia, Loosening of associations, Flight of ideas - Suicidal Ideation Suicidal Ideation: No - Homicidal Ideation Homicidal Ideation: No Goal/Treatment Plan - Goal/Treatment Plan Need for Continued Stay: Discharge may exacerbated symptoms, Severe functional impairment Progress Toward Problem(s) and Goals/Treatment Plan: Schizoaffective disorder bipolar type CBT Psychoeducation Supportive therapy, group therapy, individual therapy Depakote 500 mg by mouth twice a day Neurontin 300 mg by mouth 3 times a day Trazodone 50 mg by mouth daily at bedtime Seroquel 300 milligrams by mouth daily at bedtime Opiate use disorder moderate CBT Psychoeducation Supportive therapy, individual therapy Use [place] for abstinence Cocaine use disorder moderate CBT Psychoeducation Supportive therapy, individual therapy Use [place] for abstinence Cannabis use disorder mild CBT Psychoeducation Supportive therapy, individual therapy Use [place] for abstinence
[2016-11-07] MEDS: Divalproex 500 mg DR Tab PO SCH ×2 (12:02→17:46)
--- NOTE | 2016-11-07 17:41 | PCM.PYCHPN ---
Psychiatric Progress Note - Psychiatric Progress Note Patient seen today, length of contact: 20 min Patient Chief Complaint: "I'm not bad" Problems Identified/Issues Discussed: The pt is seen, chart reviewed, case discussed. Pt mood is low today. Pt slept well the night before. Pt denies complaints today. Pt denies auditory or visual hallucinations. Pt denies intentions of hurting himself or other people. Pt current plan is to go to [place] by plane and be with family. Pt states he will continue to see his psychiatrist in [place]. After care discussed, support and psychoeducation given. Medical Problems: Hypercholesterolemia Medication Change: No Medical Record Reviewed: Yes Mental Status Examination - Cognitive Function Orientation: Person, Place, Situation, Time Memory: Intact Attention: WNL Concentration: Poor Association: WNL Fund of Knowledge: WNL - Mood Mood: Anxious - Affect Affect: Constricted - Speech Speech: Appropriate - Formal Thought Process Formal Thought Process: No Impairment - Suicidal Ideation Suicidal Ideation: No - Homicidal Ideation Homicidal Ideation: No Goal/Treatment Plan - Goal/Treatment Plan Need for Continued Stay: Discharge may exacerbated symptoms, Severe functional impairment Progress Toward Problem(s) and Goals/Treatment Plan: Schizoaffective disorder bipolar type CBT Psychoeducation Supportive therapy, group therapy, individual therapy Depakote 500 mg by mouth twice a day Neurontin 300 mg by mouth 3 times a day Trazodone 50 mg by mouth daily at bedtime Seroquel 300 milligrams by mouth daily at bedtime Opiate use disorder moderate CBT Psychoeducation Supportive therapy, individual therapy Use [place] for abstinence Cocaine use disorder moderate CBT Psychoeducation Supportive therapy, individual therapy Use [place] for abstinence Cannabis use disorder mild CBT Psychoeducation Supportive therapy, individual therapy Use [place] for abstinence Estimated Date of D/C: 11/09/16 - Smoking Cessation Smoking Cessation Initiated: No
[2016-11-08 08:44] VITALS: RESP 18; TEMP 98
[2016-11-08] MEDS: Divalproex 500 mg DR Tab PO SCH ×2 (10:30→17:28)
--- NOTE | 2016-11-08 12:54 | PCM.PYCHPN ---
Psychiatric Progress Note - Psychiatric Progress Note Patient seen today, length of contact: 17 min Patient Chief Complaint: I'm still feeling better Problems Identified/Issues Discussed: Patient seen and evaluated, chart reviewed and discussed with the nurse. Patient reports improvement in his mood, and psychosis. He still reports anxiety and irritability but denies any auditory or visual hallucinations or any psychotic symptoms. He is taking medications and denies any side effects. He is looking forward to get discharged tomorrow and to go to [place] to his family. Supportive therapy and psychoeducation were given Medication Change: No Medical Record Reviewed: Yes Mental Status Examination - Cognitive Function Orientation: Person, Place, Situation, Time Memory: Intact Attention: WNL Concentration: WNL Association: WNL Fund of Knowledge: WNL - Mood Mood: Anxious - Affect Affect: Broad - Speech Speech: Appropriate - Formal Thought Process Formal Thought Process: No Impairment - Suicidal Ideation Suicidal Ideation: No - Homicidal Ideation Homicidal Ideation: No Goal/Treatment Plan - Goal/Treatment Plan Need for Continued Stay: Discharge may exacerbated symptoms, Severe functional impairment Progress Toward Problem(s) and Goals/Treatment Plan: Schizoaffective disorder bipolar type CBT Psychoeducation Supportive therapy, group therapy, individual therapy Depakote 500 mg by mouth twice a day Neurontin 300 mg by mouth 3 times a day Trazodone 50 mg by mouth daily at bedtime Seroquel 300 milligrams by mouth daily at bedtime Opiate use disorder moderate CBT Psychoeducation Supportive therapy, individual therapy Use CA for abstinence Cocaine use disorder moderate CBT Psychoeducation Supportive therapy, individual therapy Use CA for abstinence Cannabis use disorder mild CBT Psychoeducation Supportive therapy, individual therapy Use CA for abstinence Estimated Date of D/C: 11/09/16 - Smoking Cessation Smoking Cessation Initiated: No
[2016-11-08 15:23] VITALS: BP 101/65; PULSE 91
--- NOTE | 2016-11-09 09:23 | PCM.PYCHDC ---
Mental Status Examination - Mental Status Examination Orientation: Person, Place, Situation, Time Memory: Intact Mood: Neutral Affect: Constricted Speech: Soft Attention: WNL Concentration: WNL Association: WNL Fund of Knowledge: WNL Formal Thought Process: No Impairment Description of patient's judgement and insight: good, fair Psychotic Thoughts and Behaviors: denies any AVH Suicidal Ideation: No Current Homicidal Ideation?: No Discharge Summary - Discharge Note Reason for Hospitalization: Pt is a 46 year old, male, presenting to the ED for a crisis evaluation due to anxiety and loss of sleep. Pt states that he has been unable to sleep since his discharge from last week. Patient was just discharged from [facility] almost 10 days ago. He was admitted because of disorganized and internally preoccupied behavior. As per the patient, soon after discharge he stopped taking medications as he thought that he has already received the injection. As per the patient, he started having racing of thoughts and flight of ideas. Yesterday he started having hallucinations so came to the hospital to get help. Patient remained disorganized and internally preoccupied throughout the interview. He appeared delusional and paranoid. Patient reports of hearing voices auditory hallucinations and reports persecutory delusions that someone is following him. His urinary toxicology is positive for heroin, cocaine and marijuana and patient reports that he abused something in a republic[place] but he doesnt remember. Consultations:: List each consultation separately and include: 1. Reason for request. 2. Findings. 3. Follow-up Summary of Hospital Course include:: 1. Description of specific treatment plan utilized for patients during their course of treatmen. 2. Summarize the time- course for resolution of acute symptoms and/or regressed behaviors. 3. Describe issues identified and worked on during hospitalization. 4. Describe medication utilized. 5. Describe medical problems identified and treated. 6. Reassessment of suicide risk Summary of Hospital Course: During the course of his stay, patient (pt) started progressively improving and he no longer remained irritable, depressed, suicidal and paranoid. His mood and paranoia were improved and he started attending groups and meetings and started socializing. He started taking care of his hygiene and ADLs, and he no longer remained disheveled and malodorous. Patient denied any feelings of hopelessness , helplessness, and worthlessness, denied any problem with the sleep or appetite , denied suicidal ideation or homicidal ideation. Pt denied any auditory or visual hallucinations. Some changes were made in his current medications and patient was discharged on following medications. He tolerated these medications very well and denied any side effects. - Final Diagnosis (DSM 5) Condition upon Discharge: FAIR DSM 5: Schizoaffective disorder bipolar type Opiate use disorder moderate Cocaine use disorder moderate Cannabis use disorder mild Disposition: HOME/ ROUTINE Follow-up Treatment Plan: Education: Pt was educated and counseled about the risks and benefits of taking and not taking medications. Pt was educated and counseled about the risks of drinking and abusing drugs. Pt was educated and counseled to go to the ER or call 911 if pt develop suicidal ideation or homicidal ideation, worsening of symptoms or severe side effects of the meds. Prescriptions/Medication Reconciliation: Divalproex [Depakote DR(*BID*)] 500 mg PO BID #60 tcp traZODone [Desyrel] 50 mg PO HS #30 tab Gabapentin [Neurontin] 300 mg PO TID #90 cap QUEtiapine [Seroquel] 100 mg PO HS #60 tab QUEtiapine [Seroquel] 100 mg PO BID #60 tab - Smoking Cessation Smoking Cessation Medication prescribed: No - Antipsychotic Medications Pt discharged on 2 or more routine antipsychotic medications: No
== END 2016-11-09 06:50 | disposition home or self-care (01) | DRG 430 ==
LOC: C.ER 08:29 → C.5E 12:03
PROVIDERS: ADMIT Psychiatry & Neurology Psychiatry; ATTEND Psychiatry & Neurology Psychiatry
PROC: GZHZZZZ Group Psychotherapy (ICD-10-PCS; principal; 2016-11-04)
PROC: GZ58ZZZ Individual Psychotherapy, Cognitive-Behavioral (ICD-10-PCS; 2016-11-04)
PROC: GZ56ZZZ Individual Psychotherapy, Supportive (ICD-10-PCS; 2016-11-04)
PROC: HZ52ZZZ Individual Psychotherapy for Substance Abuse Treatment, Cognitive-Behavioral (ICD-10-PCS; 2016-11-04)
PROC: HZ56ZZZ Individual Psychotherapy for Substance Abuse Treatment, Psychoeducation (ICD-10-PCS; 2016-11-04)
PROC: HZ83ZZZ Medication Management for Substance Abuse Treatment, Antabuse (ICD-10-PCS; 2016-11-04)
DX: F25.0 Schizoaffective disorder, bipolar type (principal); F22 Delusional disorders; F11.90 Opioid use, unspecified, uncomplicated; F14.90 Cocaine use, unspecified, uncomplicated; F12.90 Cannabis use, unspecified, uncomplicated; E78.00 Pure hypercholesterolemia, unspecified; F43.10 Post-traumatic stress disorder, unspecified; G47.00 Insomnia, unspecified; Z79.899 Other long term (current) drug therapy